=== PATIENT | male | born 1995 | race Hispanic/Latino ===

== ENCOUNTER 2016-12-12 14:25 | Emergency (ER) | payer MEDICAID ==
[2016-12-12 14:34] VITALS: BMI 32.1
[2016-12-12 14:35] VITALS: BP 144/103; PULSE 90; RESP 18; TEMP 98.8; O2SAT 99
--- NOTE | 2016-12-12 15:13 | C.PDOC ---
History Of Present Illness Amrik Gonzalez is a 21 y/o male with no past medical history, who presents to the ED complaining of heroin withdrawal. States he began taking heroin 6-8 weeks ago and has had increased tolerance from 1 bag per day to 7-10 per day over that time span. He bought methadone off the street in an attempt to quit. Here requesting a bed for detox. Patient does describe intermittent palpitations and chest pain. Currently he is asymptomatic. States he was taking Xanax last year, and recently has been sleeping less, with a decreased appetite. Admits to daily marijuana use, but no alcohol use. PMD: Unknown Time Seen by Provider: 12/12/16 14:41 Chief Complaint (Nursing): Chest Pain History Per: Patient History/Exam Limitations: no limitations Onset/Duration Of Symptoms: Intermittent Episodes Current Symptoms Are (Timing): Gone Past Medical History Vital Signs: Last Vital Signs Temp 98.8 F 12/12/16 14:34 Pulse 90 12/12/16 14:34 Resp 18 12/12/16 14:34 BP 144/103 H 12/12/16 14:34 Pulse Ox 99 12/12/16 14:34 - Social History Hx Alcohol Use: Yes Hx Substance Use: No - Immunization History Hx Tetanus Toxoid Vaccination: No ED Course And Treatment O2 Sat by Pulse Oximetry: 99 Disposition - Disposition Forms: [employer] (Polish)
--- NOTE | 2016-12-12 15:17 | C.PDOC ---
History Of Present Illness Amrik Gonzalez is a 21 y/o male with no past medical history, who presents to the ED complaining of heroin withdrawal. States he began taking heroin 6-8 weeks ago and has had increased tolerance from 1 bag per day to 7-10 per day over that time span. He bought methadone off the street in an attempt to quit. Here requesting a bed for detox. Patient does describe intermittent palpitations that occurred this morning after using heroin. Currently he is asymptomatic. States he was taking Xanax last year, and recently has been sleeping less, with a decreased appetite. Admits to daily marijuana use, but no alcohol use. PMD: Unknown Time Seen by Provider: 12/12/16 14:41 Chief Complaint (Nursing): Chest Pain History Per: Patient History/Exam Limitations: no limitations Modifying Factor(s): Other (Heroin) Associated Symptoms: Depression, Other (Substance abuse) Past Medical History Reviewed: Historical Data, Nursing Documentation, Vital Signs Vital Signs: Last Vital Signs Temp 98.8 F 12/12/16 14:34 Pulse 90 12/12/16 14:34 Resp 18 12/12/16 14:34 BP 144/103 H 12/12/16 14:34 Pulse Ox 99 12/12/16 15:42 - Medical History PMH: No Chronic Diseases Family History: States: No Known Family Hx - Social History Hx Alcohol Use: Yes Hx Substance Use: Yes (Heroin, marijuana) - Immunization History Hx Tetanus Toxoid Vaccination: No Review Of Systems Except As Marked, All Systems Reviewed And Found Negative. Cardiovascular: Positive for: Palpitations (intermittent) Psych: Positive for: Depression, Other (Substance abuse) Physical Exam - Physical Exam Appears: Non-toxic, No Acute Distress Skin: Normal Color, Warm, Dry Head: Atraumatic, Normacephalic Eye(s): bilateral: Normal Inspection, PERRL, EOMI Oral Mucosa: Moist Neck: Normal, Normal ROM, Supple Chest: Symmetrical Cardiovascular: Rhythm Regular, No Murmur, No Other (Gallop) Respiratory: Normal Breath Sounds, No Accessory Muscle Use Gastrointestinal/Abdominal: Normal Exam, Soft, No Tenderness, Other (Obese, large habitus) Back: Normal Inspection Extremity: Bilateral: Atraumatic, Normal Color And Temperature, Normal ROM ( Moving all extremities) Neurological/Psych: Oriented x3, Normal Speech, Other (depressed affect) Gait: Steady ED Course And Treatment O2 Sat by Pulse Oximetry: 99 (RA) Pulse Ox Interpretation: Normal Medical Decision Making Medical Decision Making: Time: 14:35 --EKG --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 I have reviewed the chart and agree that the record accurately reflects my personal performance of the history, physical exam, medical decision making, and the department course for this patient. I have also personally directed, reviewed, and agree with the discharge instructions and disposition.
--- NOTE | 2016-12-13 17:17 | CARD ---
APPROVED REPORT EKG Measurement Heart [id number] <Conclusion> Normal sinus rhythm with sinus arrhythmia Normal ECG
== END 2016-12-12 15:53 | disposition home or self-care (01) ==
LOC: C.ER 14:25
DX: F11.10 Opioid abuse, uncomplicated (principal)

== ENCOUNTER 2016-12-14 14:42 | Inpatient (IN) | payer MEDICAID ==
[2016-12-14 14:42] VITALS: BMI 32.1
--- NOTE | 2016-12-14 15:24 | C.PDOC ---
History Of Present Illness 21 yr old male presents to the ER for detox from heroin. Patient states he snorts, no IV use. Patient reports of generalized anxiety and difficulty sleeping. Patient denies other drug abuse, alcohol use, suicidal ideation, homicidal ideation, hallucinations, fever, chills, chest pain, SOB, nausea, vomiting, abdominal pain, weakness or numbness. Time Seen by Provider: 12/14/16 15:11 Chief Complaint (Nursing): Substance Abuse History Per: Patient History/Exam Limitations: no limitations Onset/Duration Of Symptoms: Days Suicide/Self Injury Attempted (Context): None Past Medical History Reviewed: Historical Data, Nursing Documentation, Vital Signs Vital Signs: Last Vital Signs Temp 98.3 F 12/17/16 13:52 Pulse 108 H 12/17/16 13:52 Resp 20 12/17/16 13:52 BP 124/76 12/17/16 13:52 Pulse Ox 99 12/17/16 13:52 - Medical History PMH: Seizures ([place] 10-29-15) Family History: States: No Known Family Hx - Social History Hx Alcohol Use: Yes Hx Substance Use: Yes (Heroin, marijuana) - Immunization History Hx Tetanus Toxoid Vaccination: No Review Of Systems Except As Marked, All Systems Reviewed And Found Negative. Constitutional: Negative for: Fever, Chills Cardiovascular: Negative for: Chest Pain Respiratory: Negative for: Shortness of Breath Gastrointestinal: Negative for: Nausea, Vomiting, Abdominal Pain Neurological: Negative for: Weakness, Numbness Psych: Positive for: Anxiety. Negative for: Suicidal ideation Physical Exam - Physical Exam Appears: Well, No Acute Distress Skin: Normal Color, Warm, Dry, No Rash Head: Atraumatic, Normacephalic Eye(s): bilateral: Normal Inspection, PERRL, EOMI Oral Mucosa: Moist Chest: Symmetrical, No Tenderness Cardiovascular: Rhythm Regular, No Murmur Respiratory: Normal Breath Sounds, No Rales, No Rhonchi, No Stridor, No Wheezing Gastrointestinal/Abdominal: Normal Exam, Soft, No Tenderness, No Guarding, No Rebound Extremity: Normal ROM, No Swelling Neurological/Psych: Oriented x3, Normal Speech, Normal Motor ED Course And Treatment - Laboratory Results Result Diagrams: 12/15/16 08:50 12/15/16 08:50 O2 Sat by Pulse Oximetry: 97 (RA) Pulse Ox Interpretation: Normal Disposition - Disposition Disposition: HOSPITALIZED Disposition Time: 16:50 Condition: STABLE - Clinical Impression Clinical Impression: Opioid abuse - Scribe Statement The provider has reviewed the documentation as recorded by the Henrikibe Cecily Rodas Provider Attestation: All medical record entries made by the Henrikibe were at my direction and personally dictated by me. I have reviewed the chart and agree that the record accurately reflects my personal performance of the history, physical exam, medical decision making, and the department course for this patient. I have also personally directed, reviewed, and agree with the discharge instructions and disposition.
[2016-12-14 15:46] LABS: RBC URINE < 1 /hpf (0-3); URINE BILIRUBIN NEGATIVE (NEGATIVE); URINE BLOOD 1+ (NEGATIVE); URINE COLOR Straw (YELLOW); URINE GLUCOSE (UA) NORMAL (Normal); URINE KETONE NEGATIVE (NEGATIVE); URINE LEUKOCYTE ESTERASE NEG Leu/uL (Negative); URINE PROTEIN NEGATIVE (NEGATIVE); URINE UROBILINOGEN NORMAL mg/dL (0.2-1.0); WBC URINE < 1 /hpf (0-5)
[2016-12-14 15:59] LABS: BASO % 0.5 % (0.0-2.0); EOS % 0.2 % (0.0-4.0); HEMATOCRIT 44.2 % (35.0-51.0); LYMPH # 1.2 K/uL (1.0-4.3); LYMPH % 15.8 % (20.0-40.0); MEAN CELL VOLUME 84.9 fL (80.0-94.0); MEAN CORPUSCULAR HEMOGLOBIN 29.2 pg (27.0-31.0); MEAN CORPUSCULAR HGB CONC 34.4 g/dL (33.0-37.0); MEAN PLATELET VOLUME 10.1 fL (7.2-11.7); MONO # 0.3 K/uL (0.0-0.8); MONO % 3.4 % (0.0-10.0); NRBC % 0.1 % (0.0-2.0); RED CELL DISTRIBUTION WIDTH 12.8 % (11.5-14.5); WHITE BLOOD COUNT 7.6 K/uL (4.8-10.8)
[2016-12-14 16:05] LABS: CHLORIDE 104 mmol/L (98-107); POTASSIUM 4.4 mmol/L (3.6-5.2); SODIUM 142 mmol/L (132-148)
[2016-12-14 16:07] LABS: ALB/GLOB RATIO 1.6 (1.0-2.1); AST/SGOT 26 U/L (17-59); BILIRUBIN,TOTAL 0.6 mg/dL (0.2-1.3); CARBON DIOXIDE 24 mmol/L (22-30); GFR AFRICAN-AMERICAN > 60; TOTAL PROTEIN 7.9 g/dL (6.3-8.3)
[2016-12-14 16:08] LABS: ALCOHOL SERUM < 10 mg/dl (0-10); ALKALINE PHOSPHATASE 62 U/L (38-126); ALT/SGPT 55 U/L (21-72); BLOOD UREA NITROGEN 7 mg/dL (9-20); CALCIUM 9.9 mg/dl (8.6-10.4); GLUCOSE,RANDOM 101 mg/dL (75-110)
--- NOTE | 2016-12-14 17:11 | PCM.BM ---
<Sandra Castro - Last Filed: 12/14/16 17:09> Treatment Plan Problems - Problems identified on initial assessmt potiential for opiate withdrawal Date Initiated: 12/14/16 Time Initiated: 17:10 Assessment reference: NA Status: Active Treatment assets and liabiliti Patient Assests: cooperative, ADL independent, physically healthy Patient Liabilities: substance abuse - Milieu Protocol Maintain good personal hygiene: daily Encourage regular showers, daily Remind patient to perform daily oral care, daily Assist patient to perform ADL's Maintain personal safety: every shift Educate patient to report safety concerns to staff, every shift Monitor environment for contraband/sharps Medication safety: Monitor for expected outcome, potential side effects: every shift, Assess barriers to learning: every shift, Assess readiness for medication education: every shift <Priyanka Davis - Last Filed: 12/24/16 19:00> - Diagnosis (1) Opioid use disorder, severe, dependence Status: Acute Interventions: 12/24/16 19:00 * Assess 7x/week regarding severity of withdrawal * Educate regarding risks, benefits, side effects and alternatives of medications * Use Motivational Interviewing for abstinence * Use CBT for relapse prevention * Medication management for withdrawal symptoms * Encourage medication assisted treatment *
[2016-12-14] MEDS ORDERED: Aluminum Hydroxide/Magnesium Hydroxide Susp (30 mL) PO PRN (17:47)
--- NOTE | 2016-12-15 06:39 | CP.PCM.CON ---
<Cleo Wilkinson - Last Filed: 12/15/16 06:33> History of Present Illness - History of Present Illness History of Present Illness: HPI: Patient is a 21M with PMH sinus arrhythmia and seizure post head trauma who is here for detox from heroin. Patient states he snorts but denies IV use. Patient reports some anxiety and nausea. Patient denies fever, chills, chest pain, SOB, nausea, vomiting, abdominal pain, diarrhea. PMH: abnormal ECG, seizure post head trauma Meds: denies PSH: unknown Allergies: denies FamHx: denies SocHx: Heroin use, Occasional smoker, occasional alcohol use (1x/mon), denies other drug use Past Patient History - Past Medical History & Family History Past Medical History?: Yes - Past Social History Smoking Status: Light Smoker < 10 Cigarettes Daily - CARDIAC Hx Cardiac Disorders: No Hx Hypertension: No - PULMONARY Hx Tuberculosis: No - NEUROLOGICAL HX Cerebrovascular Accident: No Hx Seizures: Yes ([place] 10-29-15) - HEENT Hx HEENT Problems: No - RENAL Hx Chronic Kidney Disease: No - ENDOCRINE/METABOLIC Hx Endocrine Disorders: No - HEMATOLOGICAL/ONCOLOGICAL Hx Cancer: No Hx Human Immunodeficiency Virus (HIV): No - INTEGUMENTARY Hx Dermatological Problems: No - MUSCULOSKELETAL/RHEUMATOLOGICAL Hx Musculoskeletal Disorders: No Hx Falls: Yes (10-27-15 HAS A 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.) - GASTROINTESTINAL Hx Gastrointestinal Disorders: No - GENITOURINARY/GYNECOLOGICAL Hx Sexually Transmitted Disorders: No - PSYCHIATRIC Hx Substance Use: Yes (Heroin, marijuana) - SURGICAL HISTORY Hx Surgeries: No - ANESTHESIA Hx Anesthesia: No Meds Allergies/Adverse Reactions: Allergies Allergy/AdvReac Type Severity Reaction Status Date / Time No Known Allergies Allergy Verified 12/14/16 15:25 - Medications Medications: Current Medications Al Hydrox/Mg Hydrox/Simethicone (Maalox 30 Ml) 30 ml PO TID PRN PRN Reason: Indigestion / Heartburn Clonidine HCl (Catapres) 0.1 mg PO Q8 PRN PRN Reason: COWS Score More or Equal to 5 Last Admin: 12/14/16 18:30 Dose: 0.1 mg Gabapentin (Neurontin) 300 mg PO TID DAISHA Last Admin: 12/14/16 18:31 Dose: 300 mg Hydroxyzine HCl (Atarax) 50 mg PO Q6H PRN PRN Reason: Anxiety Last Admin: 12/14/16 18:30 Dose: 50 mg Ibuprofen (Motrin Tab) 600 mg PO Q6H PRN PRN Reason: Pain, moderate (4-7) Loperamide HCl (Imodium) 2 mg PO Q8 PRN PRN Reason: Diarrhea Methadone HCl (Methadone) 15 mg PO Q24H DAISHA PRN Reason: Taper Stop: 12/19/16 09:59 Nicotine (Nicoderm Cq) 1 patch TD DAILY DAISHA Last Admin: 12/14/16 19:19 Dose: 1 patch Ondansetron HCl (Zofran Tab) 4 mg PO Q8 PRN PRN Reason: Nausea/Vomiting Trazodone HCl (Desyrel) 100 mg PO HS PRN PRN Reason: Insomnia Last Admin: 12/14/16 23:13 Dose: 100 mg Physical Exam - Constitutional Appears: Non-toxic, No Acute Distress - Head Exam Head Exam: NORMAL INSPECTION - Eye Exam Eye Exam: EOMI - ENT Exam ENT Exam: Mucous Membranes Moist - Respiratory Exam Respiratory Exam: Clear to Auscultation Bilateral, NORMAL BREATHING PATTERN. absent: Wheezes, Respiratory Distress - Cardiovascular Exam Cardiovascular Exam: REGULAR RHYTHM, +S1, +S2. absent: Bradycardia, Tachycardia , Systolic Murmur - GI/Abdominal Exam GI & Abdominal Exam: Normal Bowel Sounds, Soft. absent: Distended, Tenderness - Extremities Exam Extremities exam: Positive for: normal inspection - Neurological Exam Neurological exam: Alert, Normal Gait, Oriented x3 - Psychiatric Exam Psychiatric exam: Normal Affect, Normal Mood - Skin Skin Exam: Dry, Intact, Warm Results - Vital Signs Recent Vital Signs: Last Vital Signs Temp 98.1 F 12/14/16 20:11 Pulse 97 H 12/14/16 20:11 Resp 20 12/14/16 20:11 BP 124/79 12/14/16 20:11 Pulse Ox 100 12/14/16 17:08 - Labs Result Diagrams: 12/14/16 15:54 12/14/16 15:54 Assessment & Plan - Assessment and Plan (Free Text) Assessment: Sinus arrhythmia * no contraindication to methadone use * Patient stable Heroin abuse * Patient aware of potential side effects of continued drug use and withdrawal symptoms * Continue current care per Dr. Davis <Stanley De Los Santos P - Last Filed: 12/15/16 08:19> Meds - Medications Medications: Current Medications Al Hydrox/Mg Hydrox/Simethicone (Maalox 30 Ml) 30 ml PO TID PRN PRN Reason: Indigestion / Heartburn Clonidine HCl (Catapres) 0.1 mg PO Q8 PRN PRN Reason: COWS Score More or Equal to 5 Last Admin: 12/14/16 18:30 Dose: 0.1 mg Gabapentin (Neurontin) 300 mg PO TID DAISHA Last Admin: 12/14/16 18:31 Dose: 300 mg Hydroxyzine HCl (Atarax) 50 mg PO Q6H PRN PRN Reason: Anxiety Last Admin: 12/14/16 18:30 Dose: 50 mg Ibuprofen (Motrin Tab) 600 mg PO Q6H PRN PRN Reason: Pain, moderate (4-7) Loperamide HCl (Imodium) 2 mg PO Q8 PRN PRN Reason: Diarrhea Methadone HCl (Methadone) 15 mg PO Q24H DAISHA PRN Reason: Taper Stop: 12/19/16 09:59 Nicotine (Nicoderm Cq) 1 patch TD DAILY [facility] Last Admin: 12/14/16 19:19 Dose: 1 patch Ondansetron HCl (Zofran Tab) 4 mg PO Q8 PRN PRN Reason: Nausea/Vomiting Trazodone HCl (Desyrel) 100 mg PO HS PRN PRN Reason: Insomnia Last Admin: 12/14/16 23:13 Dose: 100 mg Results - Vital Signs Recent Vital Signs: Last Vital Signs Temp 97.6 F 12/15/16 06:46 Pulse 59 L 12/15/16 06:46 Resp 19 12/15/16 06:46 BP 112/70 12/15/16 06:46 Pulse Ox 100 12/15/16 06:46 - Labs Result Diagrams: 12/14/16 15:54 12/14/16 15:54 Attending/Attestation - Attestation I have personally seen and examined this patient.: Yes I have fully participated in the care of the patient.: Yes I have reviewed all pertinent clinical information: Yes Notes (Text): Sinus arrhythmia is normal variant, methadone could be given, suggest tapering due to patient's inconsistent use of heroin, h/o seizure 1 time episode. Will sign off, please call as needed.
[2016-12-15 09:04] LABS: BASO # 0.1 K/uL (0.0-0.2); BASO % 0.9 % (0.0-2.0); EOS # 0.1 K/uL (0.0-0.7); EOS % 1.6 % (0.0-4.0); LYMPH # 2.9 K/uL (1.0-4.3); LYMPH % 40.6 % (20.0-40.0); MEAN CELL VOLUME 86.5 fL (80.0-94.0); MEAN CORPUSCULAR HEMOGLOBIN 29.7 pg (27.0-31.0); MEAN CORPUSCULAR HGB CONC 34.3 g/dL (33.0-37.0); MEAN PLATELET VOLUME 10.2 fL (7.2-11.7); MONO # 0.5 K/uL (0.0-0.8); NRBC % 0.1 % (0.0-2.0); RED CELL DISTRIBUTION WIDTH 12.9 % (11.5-14.5); WHITE BLOOD COUNT 7.2 K/uL (4.8-10.8)
[2016-12-15 09:17] LABS: CHLORIDE 106 mmol/L (98-107)
[2016-12-15 09:18] LABS: POTASSIUM 4.1 mmol/L (3.6-5.2); SODIUM 143 mmol/L (132-148)
[2016-12-15 09:20] LABS: ALB/GLOB RATIO 1.5 (1.0-2.1); ALKALINE PHOSPHATASE 46 U/L (38-126); AST/SGOT 22 U/L (17-59); BILIRUBIN,TOTAL 0.4 mg/dL (0.2-1.3); CARBON DIOXIDE 26 mmol/L (22-30); GFR AFRICAN-AMERICAN > 60; TOTAL PROTEIN 6.4 g/dL (6.3-8.3)
[2016-12-15 09:21] LABS: ALT/SGPT 48 U/L (21-72); BLOOD UREA NITROGEN 13 mg/dL (9-20); CALCIUM 8.9 mg/dl (8.6-10.4); GLUCOSE,RANDOM 91 mg/dL (75-110)
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
--- NOTE | 2016-12-16 14:22 | PCM.PYCHPN ---
Psychiatric Progress Note - Psychiatric Progress Note Patient seen today, length of contact: 19 min Patient Chief Complaint: "I need to get clean" Problems Identified/Issues Discussed: The pt is seen, chart reviewed, case discussed with staff. The pt is compliant with medications and reports no side-effects. Symptoms are improving but needs more time to stabilize. After care discussed, support and psychoeducation given. He asked to leave but agreed to stay and complete his detox Ativan prn added bc he looked and is very anxious Medication Change: Yes Medical Record Reviewed: Yes Mental Status Examination - Cognitive Function Orientation: Person, Place, Situation, Time Memory: Intact Attention: Poor Concentration: Poor Association: WNL Fund of Knowledge: WNL - Mood Mood: Anxious - Affect Affect: Constricted - Speech Speech: Appropriate - Formal Thought Process Formal Thought Process: No Impairment - Suicidal Ideation Suicidal Ideation: No - Homicidal Ideation Homicidal Ideation: No Goal/Treatment Plan - Goal/Treatment Plan Need for Continued Stay: Discharge may exacerbated symptoms, Severe functional impairment Progress Toward Problem(s) and Goals/Treatment Plan: Methadone detox per his request (vs. subutex) As needed medications Gabapentin for augmentation Attend groups and activities Supportive therapy and psychoeducation DC for abstinence CBT for relapse prevention Encourage MAT Refer to rehab or IOP Attend self-help groups as well Lexapro and CBT for HELEN Gabapentin and DC for other drug use Monitor wdw sxs from benzos Estimated Date of D/C: 12/17/16
--- NOTE | 2016-12-17 10:40 | PCM.PYCHDC ---
Mental Status Examination - Mental Status Examination Orientation: Person, Place, Situation, Time Memory: Intact Mood: Anxious Affect: Constricted Speech: Appropriate Attention: WNL Concentration: WNL Association: WNL Fund of Knowledge: WNL Formal Thought Process: No Impairment Suicidal Ideation: No Current Homicidal Ideation?: No Discharge Summary - Discharge Note Reason for Hospitalization: Heroin detox Consultations:: List each consultation separately and include: 1. Reason for request. 2. Findings. 3. Follow-up Summary of Hospital Course include:: 1. Description of specific treatment plan utilized for patients during their course of treatmen. 2. Summarize the time- course for resolution of acute symptoms and/or regressed behaviors. 3. Describe issues identified and worked on during hospitalization. 4. Describe medication utilized. 5. Describe medical problems identified and treated. 6. Reassessment of suicide risk Summary of Hospital Course: The patient was admitted and started on treatment with psychotherapy, support, psychoeducation and medications. OH and CBT used. The patient attended groups and activities, as well as milieu therapy. All the risks and benefits of medications are discussed and the patient understood and agreed. The patient improved with the treatments provided. He wanted to leave a day early but then agreed to stay and complete his treatment After care discussed with the patient. He agreed to go to [facility] after much discussion (he thought he could do it without any help , and may be with some meetings) - Final Diagnosis (DSM 5) Condition upon Discharge: STABLE DSM 5: Opioid withdrawal Opioid use disorder, severe Cocaine use disorder, moderate Cannabis use disorder, mild Tobacco use disorder, mild Sedative, hypnotic or anxiolytic use disorder, moderate HELEN Disposition: HOME/ ROUTINE Follow-up Treatment Plan: Continue below medications after discharge. Follow after care plan as discussed. Use relapse prevention skills. Return to ED or call 911 if suicidal, homicidal or symptoms relapse. Stay away from stress, alcohol and drugs. See primary doctor once a year. Prescriptions/Medication Reconciliation: Escitalopram [Lexapro] 10 mg PO DAILY #30 tab Gabapentin [Neurontin] 300 mg PO TID #90 cap QUEtiapine [Seroquel] 100 mg PO HS #30 tab traZODone [Desyrel] 100 mg PO HS PRN #30 tab PRN Reason: Insomnia
--- NOTE | 2016-12-17 13:05 | CARD ---
APPROVED REPORT EKG Measurement Heart [id number] <Conclusion> Normal sinus rhythm with sinus arrhythmia Minimal voltage criteria for LVH, may be normal variant Borderline ECG
[2016-12-17 13:54] VITALS: BP 124/76; PULSE 108; RESP 20; TEMP 98.3
[2016-12-18 16:23] VITALS: O2SAT 97
== END 2016-12-17 14:10 | disposition home or self-care (01) | DRG 745 ==
LOC: C.ER 14:42 → C.7D 16:50
PROVIDERS: ADMIT Psychiatry & Neurology Psychiatry; ATTEND Psychiatry & Neurology Psychiatry
PROC: HZ2ZZZZ Detoxification Services for Substance Abuse Treatment (ICD-10-PCS; principal; 2016-12-14)
PROC: HZ59ZZZ Individual Psychotherapy for Substance Abuse Treatment, Supportive (ICD-10-PCS; 2016-12-14)
PROC: HZ46ZZZ Group Counseling for Substance Abuse Treatment, Psychoeducation (ICD-10-PCS; 2016-12-14)
PROC: GZ3ZZZZ Medication Management (ICD-10-PCS; 2016-12-14)
DX: F11.23 Opioid dependence with withdrawal (principal); F13.20 Sedative, hypnotic or anxiolytic dependence, uncomplicated; F14.20 Cocaine dependence, uncomplicated; F12.10 Cannabis abuse, uncomplicated; F41.1 Generalized anxiety disorder; F17.200 Nicotine dependence, unspecified, uncomplicated; Z91.410 Personal history of adult physical and sexual abuse

== ENCOUNTER 2017-01-02 18:14 | Emergency (ER) | payer MEDICAID ==
[2017-01-02 18:14] VITALS: BMI 32.1
[2017-01-02 18:33] VITALS: BP 125/87; PULSE 89; RESP 20; TEMP 98.8; O2SAT 99
--- NOTE | 2017-01-02 20:41 | C.PDOC ---
Time Seen by Provider: 01/02/17 20:29 Chief Complaint (Nursing): Substance Abuse Past Medical History Vital Signs: Last Vital Signs Temp 98.8 F 01/02/17 18:30 Pulse 89 01/02/17 18:30 Resp 20 01/02/17 18:30 BP 125/87 01/02/17 18:30 Pulse Ox 99 01/02/17 18:30 - Medical History PMH: Seizures (NEW ONSET 10-29-15) Denies: Diabetes, Hepatitis, HIV, HTN, Chronic Kidney Disease, Sexually Transmitted Disease - [facility] DETOXIFICATION SERVICES FOR SUBSTANCE ABUSE TREATMENT (12/14/16) GROUP PROCUREMENT MANAGER FOR SUBSTANCE ABUSE TREATMENT, PSYCHOEDUCATION (12/14/16) INDIV PSYCHOTHERAPY FOR SUBSTANCE ABUSE TREATMENT, SUPPORT (12/14/16) MEDICATION MANAGEMENT (12/14/16) - Social History Hx Alcohol Use: Yes Hx Substance Use: Yes (Heroin, marijuana) - Immunization History Hx Tetanus Toxoid Vaccination: No Hx Influenza Vaccination: No Hx Pneumococcal Vaccination: No ED Course And Treatment O2 Sat by Pulse Oximetry: 99 Disposition - Disposition Disposition: HOME/ ROUTINE Disposition Time: 20:40 Condition: STABLE Instructions: Opioid Withdrawal (ED) - Clinical Impression Clinical Impression: Opioid abuse
--- NOTE | 2017-01-02 21:05 | C.PDOC ---
History Of Present Illness 21 year old male presents to the ED with complaints of heroin withdrawal symptoms including abdominal cramping, muscle aches, and vomiting beginning today. Patient's last use was yesterday morning. He was a patient at [facility] for detox approximately 3-4 weeks ago and is not eligible for detox now. Patient is requesting a prescription for suboxone. He denies fever, chills, suicidal, or homicidal ideations. Time Seen by Provider: 01/02/17 20:29 Chief Complaint (Nursing): Substance Abuse History Per: Patient History/Exam Limitations: no limitations Onset/Duration Of Symptoms: Hrs Current Symptoms Are (Timing): Still Present Suicide/Self Injury Attempted (Context): None Modifying Factor(s): Narcotics (Heroin withdrawl ) Associated Symptoms: denies: Suicidal Thoughts, Suicidal Plan Involuntary Hold By: None Recent travel outside of the [place]: No Past Medical History Reviewed: Historical Data, Nursing Documentation, Vital Signs Vital Signs: Last Vital Signs Temp 98.8 F 01/02/17 18:30 Pulse 89 01/02/17 18:30 Resp 20 01/02/17 18:30 BP 125/87 01/02/17 18:30 Pulse Ox 99 01/02/17 21:06 - Medical History PMH: Seizures (NEW ONSET 10-29-15) - [facility] Procedures DETOXIFICATION SERVICES FOR SUBSTANCE ABUSE TREATMENT (12/14/16) GROUP RECRUITMENT AND OUTREACH ASSISTANT FOR SUBSTANCE ABUSE TREATMENT, PSYCHOEDUCATION (12/14/16) INDIV PSYCHOTHERAPY FOR SUBSTANCE ABUSE TREATMENT, SUPPORT (12/14/16) MEDICATION MANAGEMENT (12/14/16) Family History: States: Unknown Family Hx - Social History Hx Alcohol Use: Yes Hx Substance Use: Yes (Heroin, marijuana) - Immunization History Hx Tetanus Toxoid Vaccination: No Hx Influenza Vaccination: No Hx Pneumococcal Vaccination: No Review Of Systems Constitutional: Positive for: Other (generalized muscle aches ). Negative for: Fever, Chills Cardiovascular: Negative for: Chest Pain, Palpitations Respiratory: Negative for: Cough, Shortness of Breath Gastrointestinal: Positive for: Vomiting, Abdominal Pain. Negative for: Diarrhea Psych: Positive for: Withdrawal. Negative for: Suicidal ideation Physical Exam - Physical Exam Appears: Non-toxic, No Acute Distress Skin: Warm, Dry, Pale Head: Atraumatic, Normacephalic Eye(s): bilateral: Normal Inspection, PERRL, EOMI Oral Mucosa: Moist Neck: Supple Chest: Symmetrical, No Deformity Cardiovascular: Rhythm Regular, No Murmur Respiratory: Normal Breath Sounds, No Rales, No Rhonchi, No Wheezing Gastrointestinal/Abdominal: Soft, No Tenderness, No Distention, No Guarding, No Rebound Extremity: Normal ROM, No Tenderness Neurological/Psych: Oriented x3 Gait: Steady ED Course And Treatment O2 Sat by Pulse Oximetry: 99 (RA) Progress Note: Patient is refusing labs to be performed or to be given IV fluids. Disposition - Disposition Disposition: HOME/ ROUTINE Disposition Time: 21:00 Condition: STABLE Instructions: Opioid Withdrawal (ED) Forms: [employer] (Lao) - Clinical Impression Clinical Impression: Opioid abuse - Scribe Statement The provider has reviewed the documentation as recorded by the Scribe Marjan Santiago All medical record entries made by the Scribe were at my direction and personally dictated by me. I have reviewed the chart and agree that the record accurately reflects my personal performance of the history, physical exam, medical decision making, and the department course for this patient. I have also personally directed, reviewed, and agree with the discharge instructions and disposition.
== END 2017-01-02 20:50 | disposition home or self-care (01) ==
LOC: C.ER 18:14
DX: F11.10 Opioid abuse, uncomplicated (principal)

== ENCOUNTER 2017-07-02 14:31 | Inpatient (IN) | payer MEDICAID ==
[2017-07-02 14:31] VITALS: BMI 32.1
--- NOTE | 2017-07-02 19:24 | C.PDOC ---
History Of Present Illness 21 year old male presents to the ED requesting opiate detox. Patient states he last used around 14 bags last night. Patient denies suicidal/homicidal ideation and has no other complaints at this time. pt reports "pinched nerve" pain. to right neck for last year no fevers Time Seen by Provider: 07/02/17 18:50 Chief Complaint (Nursing): Substance Abuse History Per: Patient History/Exam Limitations: no limitations Onset/Duration Of Symptoms: Hrs Current Symptoms Are (Timing): Gone Suicide/Self Injury Attempted (Context): None Modifying Factor(s): None, Other (opiates) Associated Symptoms: denies: Suicidal Thoughts, Suicidal Plan Involuntary Hold By: None Recent travel outside of the [place]: No Additional History Per: Patient Past Medical History Reviewed: Historical Data, Nursing Documentation, Vital Signs Vital Signs: Last Vital Signs Temp 97.6 F 07/02/17 15:33 Pulse 89 07/02/17 21:47 Resp 18 07/02/17 21:47 BP 158/80 H 07/02/17 21:47 Pulse Ox 97 07/02/17 21:47 - Medical History PMH: Seizures (NEW ONSET 10-29-15) Denies: Diabetes, Hepatitis, HIV, HTN, Chronic Kidney Disease, Sexually Transmitted Disease Surgical History: No Surg Hx - [facility] Procedures DETOXIFICATION SERVICES FOR SUBSTANCE ABUSE TREATMENT (12/14/16) GROUP PROGRAM STRATEGIST FOR SUBSTANCE ABUSE TREATMENT, PSYCHOEDUCATION (12/14/16) INDIV PSYCHOTHERAPY FOR SUBSTANCE ABUSE TREATMENT, SUPPORT (12/14/16) MEDICATION MANAGEMENT (12/14/16) Family History: States: Unknown Family Hx - Social History Hx Alcohol Use: Yes Hx Substance Use: Yes (Heroin, marijuana) - Immunization History Hx Tetanus Toxoid Vaccination: No Hx Influenza Vaccination: No Hx Pneumococcal Vaccination: No Review Of Systems Psych: Positive for: Other (opiate detox ). Negative for: Suicidal ideation Physical Exam - Physical Exam Appears: Non-toxic, No Acute Distress Skin: Normal Color, Warm, Dry Head: Atraumatic, Normacephalic Eye(s): bilateral: Normal Inspection Oral Mucosa: Moist Neck: No Midline Cervical Tenderness, No Step Off Deformity, Supple Chest: Symmetrical, No Deformity, No Tenderness Cardiovascular: Rhythm Regular, No Murmur Respiratory: Normal Breath Sounds, No Rales, No Rhonchi, No Wheezing Extremity: Normal ROM, Capillary Refill (less than 2 seconds ) Neurological/Psych: Oriented x3, Normal Speech, Normal Cognition ED Course And Treatment - Laboratory Results Result Diagrams: 07/02/17 20:20 07/02/17 20:20 O2 Sat by Pulse Oximetry: 99 (on RA) Pulse Ox Interpretation: Normal Medical Decision Making Medical Decision Making: p[ending medical clearance- c/o of "chronic pinched nerve pain" no fever, no cerival ttp, no leukocytosis Progress: Bloodwork and UA ordered and reviewed. 2043: Patient has been medically cleared. Disposition - Disposition Disposition: HOSPITALIZED Disposition Time: 22:18 Condition: STABLE Forms: [employer] (Tajik) - Clinical Impression Clinical Impression: Drug abuse - Scribe Statement The provider has reviewed the documentation as recorded by the Scribe (Hermelinda Tervizo) Provider Attestation: All medical record entries made by the Scribe were at my direction and personally dictated by me. I have reviewed the chart and agree that the record accurately reflects my personal performance of the history, physical exam, medical decision making, and the department course for this patient. I have also personally directed, reviewed, and agree with the discharge instructions and disposition. Decision To Admit - Pt Status Changed To: Hospital Disposition Of: Inpatient - Admit Certification Admit to Inpatient:: After my assessment, the patient will require hospitalization for at least two midnights. This is because of the severity of symptoms shown, intensity of services needed, and/or the medical risk in this patient being treated as an outpatient. - InPatient: Physician Admission Certification: I certify that this patient requires 2 or more midnights of care for the following reason:: needs detox - . Bed Request Type: Regular Admitting Physician: Sophia Kolb Patient Diagnosis: Drug abuse
[2017-07-02 20:27] LABS: BASO # 0.1 K/uL (0.0-0.2); BASO % 1.3 % (0.0-2.0); EOS # 0.2 K/uL (0.0-0.7); EOS % 1.6 % (0.0-4.0); HEMOGLOBIN 13.9 g/dL (12.0-18.0); LYMPH # 2.9 K/uL (1.0-4.3); LYMPH % 29.4 % (20.0-40.0); MEAN CELL VOLUME 84.7 fL (80.0-94.0); MEAN CORPUSCULAR HEMOGLOBIN 29.2 pg (27.0-31.0); MEAN CORPUSCULAR HGB CONC 34.5 g/dL (33.0-37.0); MONO # 0.5 K/uL (0.0-0.8); MONO % 5.1 % (0.0-10.0); NEUT # 6.2 K/uL (1.8-7.0); NEUT % 62.6 % (50.0-75.0); RBC 4.74 Mil/uL (4.40-5.90); RED CELL DISTRIBUTION WIDTH 13.5 % (11.5-14.5); WHITE BLOOD COUNT 9.9 K/uL (4.8-10.8)
[2017-07-02 20:35] LABS: URINE BACTERIA RARE (<OCC); URINE BILIRUBIN NEGATIVE (NEGATIVE); URINE BLOOD NEGATIVE (NEGATIVE); URINE CLARITY Hazy (Clear); URINE COLOR Yellow (YELLOW); URINE GLUCOSE (UA) NORMAL (Normal); URINE LEUKOCYTE ESTERASE NEG Leu/uL (Negative); URINE PROTEIN NEGATIVE (NEGATIVE); URINE UROBILINOGEN NORMAL mg/dL (0.2-1.0)
[2017-07-02 20:40] LABS: ALB/GLOB RATIO 1.4 (1.0-2.1); ALBUMIN 4.3 g/dL (3.5-5.0); ALT/SGPT 21 U/L (21-72); AST/SGOT 21 U/L (17-59); BLOOD UREA NITROGEN 11 mg/dL (9-20); CALCIUM 9.1 mg/dl (8.6-10.4); GFR AFRICAN-AMERICAN > 60; GFR NON-AFRICAN AMERICAN > 60
[2017-07-02 21:04] LABS: BARBITURATES, UR NEGATIVE (NEGATIVE); BENZODIAZEPINES, UR NEGATIVE (NEGATIVE); PHENCYCLIDINE, UR NEGATIVE (NEGATIVE)
[2017-07-02 21:05] LABS: OPIATES, UR POSITIVE (NEGATIVE)
--- NOTE | 2017-07-02 22:45 | PCM.BM ---
<Sandra Castro - Last Filed: 07/02/17 22:44> Treatment Plan Problems - Problems identified on initial assessmt potiential for opiate withdrawal Date Initiated: 07/02/17 Time Initiated: 22:44 Assessment reference: NA Status: Active Treatment assets and liabiliti Patient Assests: cooperative, ADL independent, physically healthy, good support system Patient Liabilities: substance abuse - Milieu Protocol Maintain good personal hygiene: daily Encourage regular showers, daily Remind patient to perform daily oral care, daily Assist patient to perform ADL's Maintain personal safety: every shift Educate patient to report safety concerns to staff, every shift Monitor environment for contraband/sharps Medication safety: Monitor for expected outcome, potential side effects: every shift, Assess barriers to learning: every shift, Assess readiness for medication education: every shift <Chacorta Mars - Last Filed: 07/08/17 00:52> - Diagnosis (1) Opioid use disorder, severe, dependence Status: Acute Interventions: 07/08/17 00:52 * Assess 7x/week regarding severity of withdrawal * Educate regarding risks, benefits, side effects and alternatives of medications * Use Motivational Interviewing for abstinence * Use CBT for relapse prevention * Medication management for withdrawal symptoms * Encourage medication assisted treatment (2) Cocaine use disorder, moderate, dependence Status: Acute Interventions: 07/08/17 00:52 * Assess 7x/week regarding severity of withdrawal * Educate regarding risks, benefits, side effects and alternatives of medications * Use Motivational Interviewing for abstinence * Use CBT for relapse prevention * Medication management for withdrawal symptoms * Encourage medication assisted treatment (3) Cannabis use disorder, moderate, dependence Status: Acute Interventions: 07/08/17 00:52 * Assess 7x/week regarding severity of withdrawal * Educate regarding risks, benefits, side effects and alternatives of medications * Use Motivational Interviewing for abstinence * Use CBT for relapse prevention * Medication management for withdrawal symptoms * Encourage medication assisted treatment
--- NOTE | 2017-07-03 22:36 | PCM.PSYCH ---
Initial Psychiatric Evaluation - Initial Psychiatric Evaluation Type of Admission: Voluntary Legal Status: Capacity Chief Complaint (in patient's own words): I need treatment for my substance use. History of Present Illness and Precipitating Events: Patient is a 21 years old, single, unemployed, male with known psychiatric history was admitted due to withdrawing from substance. Patient started using heroin around September 2016, increase gradually. Currently he was using 20 bags daily, sniffing. Last used yesterday. History of one previous detox and no rehab. He also started using cocaine and cannabis around 2014, was using every other day. Last used yesterday. Also smokes cigarettes. He smokes half pack daily and is requesting for nicotine patch. He is born in [place], has 2 years of college. 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 Lives with mother. Never and has no children. His height is 6 feet 2 inches and his weight is 250 pounds. Current Medications: Active Medications Generic Name Dose Route Start Last Admin Trade Name Freq PRN Reason Stop Dose Admin Clonidine HCl 0.1 mg 07/02/17 23:23 07/03/17 13:49 Catapres PO 0.1 mg Q8 PRN Administration COWS Score More or Equal to 5 Dicyclomine HCl 10 mg 07/02/17 23:23 07/03/17 16:27 Bentyl PO 10 mg Q6 PRN Administration Muscle spasm Hydroxyzine HCl 25 mg 07/02/17 23:23 07/03/17 19:51 Atarax PO 25 mg Q6 PRN Administration Anxiety Ibuprofen 600 mg 07/02/17 23:25 Motrin Tab PO TID PRN Pain, moderate (4-7) Loperamide HCl 2 mg 07/02/17 23:23 Imodium PO Q8 PRN Diarrhea Nicotine 1 patch 07/03/17 19:35 07/03/17 19:51 Nicoderm Cq TD 1 patch DAILY DAISHA Administration Ondansetron HCl 4 mg 07/02/17 23:23 07/03/17 16:27 Zofran Tab PO 4 mg Q8 PRN Administration Nausea/Vomiting Trazodone HCl 100 mg 07/03/17 22:00 07/03/17 21:09 Desyrel PO 100 mg HS PRN Administration Insomnia Past Psychiatric History - Past Psychiatric History Previous Treatment History: None History of Abuse: None reported History of ETOH/Drug Use: See HPI History of Family Illness: None reported Pertinent Medical Hx (Current Medical&Sleep Prob, Allergies): Allergies Allergy/AdvReac Type Severity Reaction Status Date / Time No Known Allergies Allergy Verified 07/02/17 15:36 Escitalopram [Lexapro] 10 mg PO DAILY #30 tab 12/17/16 Gabapentin [Neurontin] 300 mg PO TID #90 cap 12/17/16 QUEtiapine [Seroquel] 100 mg PO HS #30 tab 12/17/16 traZODone [Desyrel] 100 mg PO HS PRN #30 tab 12/17/16 Review of Systems - Psychiatric Psychiatric: Anxiety, Other Mental Status Examination - Personal Presentation Personal Presentation: Looks stated age - Affect Affect: Other (Appropriate) - Motor Activity Motor Activity: Calm - Reliability in Providing Information Reliability in Providing Information: Fair - Speech Speech: Organized - Mood Mood: Anxious - Formal Thought Process Formal Thought Process: No Impairment - Hallucinations/Delusions Hallucinations: Other (None reported) Delusions: Other - Obsessions/Compulsions Obsessions: None Compulsions: None - Cognitive Functions Orientation: Person, Place, Situation, Time Sensorium: Alert Attention/Concentration: Attentive Abstract Thinking: [place] Estimate of Intelligence: Average Judgement: Intact, as evidence by: Insight regarding need for hospitalization Memory: Recent intact, as evidence by: Ability to recall events of the day, Remote intact, as evidenced by: Ability to recall historical events - Risk Risk: Withdrawal, Diminished functioning - Strength & Assets Inventory Strength & Assets Inventory: Family support, Cooperative - Limitations Limitations: Other DSM 5 DX - DSM 5 DSM 5 Diagnosis: Opiate use disorder severe Cocaine use disorder moderate Cannabis use disorder moderate - Recommended/Plan of Treatment Treatment Recommendations and Plan of Treatment: Patient education Supportive therapy CBT for relapse prevention [place] for abstinence We will start methadone taper for opioid withdrawal symptoms Other withdrawal symptoms Patient wants to go to [facility] after discharge from the hospital for follow-up care. Projected ELOS: 4-5 days - Smoking Cessation Smoking Cessation Initiated: Yes
--- NOTE | 2017-07-04 23:25 | PCM.PYCHPN ---
Psychiatric Progress Note - Psychiatric Progress Note Patient seen today, length of contact: 15 minutes Patient Chief Complaint: I am not feeling much better. Problems Identified/Issues Discussed: Patient seen, chart reviewed, case discussed with the staff. Issues related to illness and treatment were discussed with the patient. Reported compliant with treatment with no adverse effects. Patient reported not feeling much better even after getting 5 mg of methadone twice extra yesterday. Still requesting more methadone. Education provided about detox. Mood reported as anxious. Affect inappropriate, appeared calm. At the time of evaluation, patient was awake alert oriented 3, had no delusions , no auditory or visual hallucination, no suicidal ideations or homicidal ideations. Medical Problems: None reported Diagnostic Results: Reviewed DSM 5 Symptoms Update: Improving with treatment Medication Change: No Medical Record Reviewed: Yes Mental Status Examination - Cognitive Function Orientation: Person, Place, Situation, Time Memory: Intact Attention: WNL Concentration: WNL Association: [facility] Fund of Knowledge: [facility] Decription of patient's judgement and insights: Fair - Mood Mood: Anxious - Affect Affect: Other (Inappropriate appeared calm.) - Speech Speech: Appropriate - Formal Thought Process Formal Thought Process: No Impairment Psychotic Thoughts and Behaviors: None - Suicidal Ideation Suicidal Ideation: No - Homicidal Ideation Homicidal Ideation: No Goal/Treatment Plan - Goal/Treatment Plan Need for Continued Stay: Remain at risks for inpatient hospitalization, Discharge may exacerbated symptoms, Severe functional impairment Progress Toward Problem(s) and Goals/Treatment Plan: Patient education Supportive therapy CBT for relapse prevention [place] for abstinence Continue treatment as before. Patient wants to go to [facility] after discharge from the hospital for follow-up care. Estimated Date of D/C: 07/06/17 - Smoking Cessation Smoking Cessation Initiated: Yes
[2017-07-05 15:54] VITALS: RESP 18
--- NOTE | 2017-07-05 20:41 | PCM.PYCHPN ---
Psychiatric Progress Note - Psychiatric Progress Note Patient seen today, length of contact: 15 minutes Patient Chief Complaint: I am feeling better. Problems Identified/Issues Discussed: Patient seen, chart reviewed, case discussed with the staff. Issues related to illness and treatment were discussed with the patient. Reported compliant with treatment with no adverse effects. Patient reported feeling better. Mood reported as okay. Affect appropriate. At the time of evaluation, patient was awake alert oriented 3, had no delusions , no auditory or visual hallucination, no suicidal ideations or homicidal ideations. Medical Problems: None reported Diagnostic Results: Reviewed DSM 5 Symptoms Update: Improving with treatment. Medication Change: No Medical Record Reviewed: Yes Mental Status Examination - Cognitive Function Orientation: Person, Place, Situation, Time Memory: Intact Attention: WNL Concentration: WNL Association: WNL Fund of Knowledge: [facility] Decription of patient's judgement and insights: Fair - Mood Mood: Anxious (Much less than the) - Affect Affect: Other (Appropriate) - Speech Speech: Appropriate - Formal Thought Process Formal Thought Process: No Impairment Psychotic Thoughts and Behaviors: None - Suicidal Ideation Suicidal Ideation: No - Homicidal Ideation Homicidal Ideation: No Goal/Treatment Plan - Goal/Treatment Plan Need for Continued Stay: Remain at risks for inpatient hospitalization, Discharge may exacerbated symptoms, Severe functional impairment Progress Toward Problem(s) and Goals/Treatment Plan: Patient education Supportive therapy CBT for relapse prevention [place] for abstinence Continue treatment as before. Patient wants to go to [facility] after discharge from the hospital for follow-up care. Estimated Date of D/C: 07/06/17 - Smoking Cessation Smoking Cessation Initiated: Yes
--- NOTE | 2017-07-06 11:25 | PCM.PYCHPN ---
Psychiatric Progress Note - Psychiatric Progress Note Patient seen today, length of contact: 15 minutes Patient Chief Complaint: I am feeling better. Still I cannot sleep at night. Can you cure something else for sleep. Problems Identified/Issues Discussed: Patient seen, chart reviewed, case discussed with the staff. Issues related to illness and treatment were discussed with the patient. Reported compliant with treatment with no adverse effects. Patient reported feeling better. But still unable to sleep even with high dose of trazodone. Requesting for some other medications for sleep. We'll DC trazodone and we will start Seroquel 50 mg at bedtime. Mood reported as okay. Affect appropriate. At the time of evaluation, patient was awake alert oriented 3, had no delusions , no auditory or visual hallucination, no suicidal ideations or homicidal ideations. Medical Problems: None reported Diagnostic Results: Reviewed DSM 5 Symptoms Update: Feeling much better with the treatment. Medication Change: Yes (Started Seroquel 50 mg at bedtime) Medical Record Reviewed: Yes Mental Status Examination - Cognitive Function Orientation: Person, Place, Situation, Time Memory: Intact Attention: WNL Concentration: WNL Association: [facility] Fund of Knowledge: [facility] Decription of patient's judgement and insights: Fair - Mood Mood: Anxious (Much less than before) - Affect Affect: Other (Appropriate) - Speech Speech: Appropriate - Formal Thought Process Formal Thought Process: No Impairment Psychotic Thoughts and Behaviors: None - Suicidal Ideation Suicidal Ideation: No - Homicidal Ideation Homicidal Ideation: No Goal/Treatment Plan - Goal/Treatment Plan Need for Continued Stay: Remain at risks for inpatient hospitalization, Discharge may exacerbated symptoms, Severe functional impairment Progress Toward Problem(s) and Goals/Treatment Plan: Patient education Supportive therapy CBT for relapse prevention [place] for abstinence. We'll DC trazodone and we'll start Seroquel 50 mg at bedtime. Continue rest of the treatment as before. Patient wants to go to [facility] after discharge from the hospital for follow-up care. Estimated Date of D/C: 07/06/17 - Smoking Cessation Smoking Cessation Initiated: Yes
[2017-07-07 05:37] VITALS: O2SAT 100
--- NOTE | 2017-07-07 07:11 | PCM.PYCHDC ---
Mental Status Examination - Mental Status Examination Orientation: Person, Place, Situation, Time Memory: Intact Mood: Neutral Affect: Constricted Speech: Soft Attention: WNL Concentration: WNL Language: Word Retrieval Association: WNL Fund of Knowledge: WNL Formal Thought Process: No Impairment Description of patient's judgement and insight: good, fair Psychotic Thoughts and Behaviors: Denies any AVH Suicidal Ideation: No Current Homicidal Ideation?: No Discharge Summary - Discharge Note Reason for Hospitalization: Patient is a 21 years old, single, unemployed, male with known psychiatric history was admitted due to withdrawing from substance. Patient started using heroin around September 2016, increase gradually. Currently he was using 20 bags daily, sniffing. Last used yesterday. History of one previous detox and no rehab. He also started using cocaine and cannabis around 2014, was using every other day. Last used yesterday. Also smokes cigarettes. He smokes half pack daily and is requesting for nicotine patch. He is born in [place], has 2 years of college. 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 Lives with mother. Never and has no children. His height is 6 feet 2 inches and his weight is 250 pounds. Consultations:: List each consultation separately and include: 1. Reason for request. 2. Findings. 3. Follow-up Summary of Hospital Course include:: 1. Description of specific treatment plan utilized for patients during their course of treatmen. 2. Summarize the time- course for resolution of acute symptoms and/or regressed behaviors. 3. Describe issues identified and worked on during hospitalization. 4. Describe medication utilized. 5. Describe medical problems identified and treated. 6. Reassessment of suicide risk - Final Diagnosis (DSM 5) Condition upon Discharge: STABLE DSM 5: Opiate use disorder severe Cocaine use disorder moderate Cannabis use disorder moderate Disposition: HOME/ ROUTINE Prescriptions/Medication Reconciliation: Gabapentin [Neurontin] 100 mg PO BID #60 cap QUEtiapine [SEROquel] 50 mg PO HS #30 tab
[2017-07-07 08:22] VITALS: BP 122/77; PULSE 101; TEMP 98.7
== END 2017-07-07 09:25 | disposition home or self-care (01) | DRG 745 ==
LOC: C.ER 14:31 → C.7D 22:09
PROVIDERS: ADMIT Psychiatry & Neurology Psychiatry; ATTEND Psychiatry & Neurology Psychiatry
PROC: HZ2ZZZZ Detoxification Services for Substance Abuse Treatment (ICD-10-PCS; principal; 2017-07-02)
PROC: HZ52ZZZ Individual Psychotherapy for Substance Abuse Treatment, Cognitive-Behavioral (ICD-10-PCS; 2017-07-02)
PROC: HZ59ZZZ Individual Psychotherapy for Substance Abuse Treatment, Supportive (ICD-10-PCS; 2017-07-02)
PROC: HZ42ZZZ Group Counseling for Substance Abuse Treatment, Cognitive-Behavioral (ICD-10-PCS; 2017-07-02)
DX: F11.23 Opioid dependence with withdrawal (principal); F12.20 Cannabis dependence, uncomplicated; F14.20 Cocaine dependence, uncomplicated; F17.210 Nicotine dependence, cigarettes, uncomplicated; G47.00 Insomnia, unspecified; F41.9 Anxiety disorder, unspecified